=== PATIENT | male | born 1960 ===

== ENCOUNTER → 2023-11-20 09:46 | Outpatient (REF) | payer OTHER, SELFPAY | LOC: HWRAD 09:46 | PROVIDERS: ATTENDING PHYSICIAN Surgery; FAMILY PHYSICIAN Family Medicine | DX: N20.0 Calculus of kidney (principal) | CPT/HCPCS: 76775 ==

== ENCOUNTER → 2024-12-23 15:20 | Outpatient (REF) | payer OTHER, SELFPAY | LOC: RAD 15:20 | PROVIDERS: ATTENDING PHYSICIAN Surgery; FAMILY PHYSICIAN Family Medicine | DX: N20.0 Calculus of kidney (principal) | CPT/HCPCS: 76770 ==